=== PATIENT | female | born 1995 | race Caucasian/White ===

== ENCOUNTER 2016-04-09 19:37 | Emergency (ER) | payer OTHER ==
--- NOTE | ~2016-04-09 | CR106 ---
[facility]. [facility] A Service of [facility] & [facility] RADIOLOGY TEXT RESULTS PATIENT: PAVEL DUMONT LOCATION: SED : [birth year] UNIT #: [id number] AGE: [address]: Anuj Landon MD SEX: F ORDER DR: [id number] [place] [address] [id number] E MR#: [id number] Acc #: [id number] NAME: PAVEL DUMONT : 1995 SEX: F STUDY DATE/TIME: 04/09/2016 19:58 UNIT: SED ROOM: STUDY DESCRIPTION: CR Femur 2 Views Lt Attending Physician: Anuj Landon M.D. Ordering Physician: Anuj Landon M.D. Primary Care Physician: No Primary Care Physician MEDICAL IMAGING REPORT This report is preliminary unless electronic signature is present. EXAM Left femur series. DATE OF EXAM 04/09/2016 INDICATIONS Lower left leg pain since this morning. PROCEDURE 4 views left femur. COMPARISON None. FINDINGS No acute fracture or dislocation. IMPRESSION No acute findings. Dictated by... Carson Arreola M.D. THIS IS AN ELECTRONICALLY VERIFIED REPORT Carson Arreola M.D. at 04/11/2016 7:00 AM SP/sonya TD: 04/09/2016 23:12 JOB #: [id number] MEDICAL IMAGING REPORT
[~2016-04-09 19:37] MED LIST: ABILIFY PO; ALBUTEROL17 GM INH; CLARITIN10 M3 PO; DESYREL150 M1 PO; DOC-Q-LACE100 MG PO; FLONASE 0.05% N16 G1 INH; MULTI-VITAMIN1 EAC1 PO; PRILOSEC PO; PROAIR HFA8.5 GM INH; PROBIOTIC1 EAC3 PO; PROTONIX PO; QVAR7.3 G1 INH; QVAR7.3 GM INH; SYNTHROID PO; TRAZODONE PO; VISTARIL PO; VITAMIN D3 PO; ZOLOFT PO; ZOLOFT100 MG PO
[2016-04-23] MEDS ORDERED: OMEPRAZOLE20 M1 PO (16:01)
[2016-04-23] MEDS ORDERED: SERTRALINE HCL100 M1 PO (16:02)
[2016-04-23] MEDS ORDERED: MULTI VITAMIN1 EACH PO (16:02)
[2016-04-23] MEDS ORDERED: VITAMIN D350000 UNIT PO (16:03)
[2016-04-23] MEDS ORDERED: ACIDOPHILUS-PE1 EACH PO (16:04)
[2016-06-16] MEDS ORDERED: TOPAMAX25 MG PO (15:56)
== END 2016-04-09 20:41 | disposition home or self-care (01) ==
LOC: SED 19:37
DX: M25.552 Pain in left hip (principal); J45.909 Unspecified asthma, uncomplicated; K21.9 Gastro-esophageal reflux disease without esophagitis; F17.210 Nicotine dependence, cigarettes, uncomplicated; Z79.899 Other long term (current) drug therapy; Z91.040 Latex allergy status
CPT/HCPCS: 73552; 84703; 99283

== ENCOUNTER 2016-04-23 17:06 | Emergency (ER) | payer OTHER ==
[~2016-04-23 17:06] MED LIST changes: +ACIDOPHILUS-PE1 EACH PO; +MULTI VITAMIN1 EACH PO; +OMEPRAZOLE20 M1 PO; +SERTRALINE HCL100 M1 PO; +VITAMIN D350000 UNIT PO
[2016-04-23 17:07] LABS: BASOPHIL# 0.1 X10e3 (0-0.3); BASOPHIL% 0.8 % (0-2.5); EOSINOPHIL# 0.1 X10e3 (0-0.7); EOSINOPHIL% 1.6 % (0.0-7.0); HEMATOCRIT 47.2 % (35.0-45.0); HEMOGLOBIN 16.1 gm/dL (12.0-16.0); LYMPHOCYTE# 1.5 X10e3 (1.0-3.5); LYMPHOCYTE% 20.4 % (17.0-45.0); MEAN CELL VOLUME 83.4 FL (83-96); MEAN CORPUSCULAR HEMOGLOBIN 28.4 PG (28-34); MEAN PLATELET VOLUME 7.5 FL (6.5-11.5); MONOCYTE# 0.8 X10e3 (0-1.0); MONOCYTE% 10.7 % (3.0-12.0); NEUTROPHIL% 66.5 % (40-75); PLATELET COUNT 238 X10e3 (140-420); RED BLOOD COUNT 5.66 X10e (3.90-5.30); RED CELL DISTRIBUTION WIDTH 13.4 % (11.0-15.5); WHITE BLOOD COUNT 7.6 X10e3 (4.0-10.5)
[2016-04-23 17:08] LABS: DIFF IND NO
[2016-04-23 17:09] LABS: INFLUENZA A NEG (NEG); INFLUENZA B NEG (NEG)
[2016-04-23 17:24] LABS: BLOOD UREA NITROGEN 11 mg/dL (9-23); BUN/CREATININE RATIO 15.71; CARBON DIOXIDE 25 mmol/L (22-31); CHLORIDE 103 mmol/L (100-111); CREATININE SERUM 0.7 mg/dL (0.6-1.4); GLOM FILT RATE Estimated ABOVE60 mL/min (>60); GLUCOSE FASTING 93 mg/dL (70-110); POTASSIUM 3.3 mmol/L (3.5-5.1); SODIUM 137 mmol/L (135-145)
[2016-04-23 18:10] LABS: URINE SOURCE CLEAN CATCH
[2016-04-23 18:14] LABS: URINE APPEARANCE HAZY; URINE BILIRUBIN NEG (NEG); URINE BLOOD 2+ (NEG); URINE COLOR YELLOW; URINE GLUCOSE NEG (NORM); URINE KETONE TRACE (NEG); URINE LEUKOCYTE ESTERASE NEG (NEG); URINE NITRATE NEG (NEG); URINE PROTEIN TRACE (NEG); URINE SPECIFIC GRAVITY >=1.030 (1.003-1.035); URINE UROBILINOGEN 0.2 MG/DL (NORM)
[2016-04-23 18:18] LABS: MICRO INDICATED? YES
[2016-04-23 18:21] LABS: CULTURE INDICATED? NO; URINE BACTERIA NEG (NEG); URINE MUCUS PRESENT; URINE SQUAMOUS EPITHELIAL CELL MODERATE /[HPF]; URINE WBC NEG /[HPF] (0-5)
[2016-04-23 18:22] LABS: URINE AMORPHOUS SEDIMENT AMORP URATES
[2016-06-16] MEDS ORDERED: TOPAMAX25 MG PO (15:56)
== END 2016-04-23 18:56 | disposition home or self-care (01) ==
LOC: SED 17:06
PROVIDERS: Nurse Practitioner Family
DX: A08.4 Viral intestinal infection, unspecified (principal); F17.210 Nicotine dependence, cigarettes, uncomplicated; J45.909 Unspecified asthma, uncomplicated; Z91.040 Latex allergy status; Z79.899 Other long term (current) drug therapy
CPT/HCPCS: 36415; 80048; 81003; 84703; 85025; 87804; 96374; 99283; J2405

== ENCOUNTER 2016-05-22 20:28 | Emergency (ER) | payer OTHER ==
--- NOTE | ~2016-05-22 | CR106 ---
[facility]. [facility] A Service of [facility] & [facility] RADIOLOGY TEXT RESULTS PATIENT: PAVEL DUMONT LOCATION: SED : [birth year] UNIT #: [id number] AGE: [address]: Anuj Landon MD SEX: F ORDER DR: [id number] [place] [id number] E MR#: [id number] Acc #: [id number] NAME: PAVEL DUMONT : 1995 SEX: F STUDY DATE/TIME: 05/22/2016 21:24 UNIT: SED ROOM: STUDY DESCRIPTION: CR Femur 2 Views Lt Attending Physician: Anuj Landon M.D. Ordering Physician: Anuj Landon M.D. Primary Care Physician: Primary Care Physician No MEDICAL IMAGING REPORT This report is preliminary unless electronic signature is present. EXAM Left femur 4 views, 05/22/2016 HISTORY Left femur pain and left side pelvic pain status post fall down 5 steps this morning. FINDINGS AP and lateral views of the femur show no evidence of fracture, bone destruction, or periosteal elevation. Adjacent soft tissue structures are normal. IMPRESSION Normal femur. Dictated by... Jose Maurer M.D. THIS IS AN ELECTRONICALLY VERIFIED REPORT Jose Maurer M.D. at 05/23/2016 10:28 AM RUTHIE/rah TD: 05/23/2016 03:51 JOB #: [id number] MEDICAL IMAGING REPORT Page 1 of 1
--- NOTE | ~2016-05-22 | CR172 ---
[facility]. [facility] A Service of [facility] & [facility] RADIOLOGY TEXT RESULTS PATIENT: PAVEL DUMONT LOCATION: SED : [birth year] UNIT #: [id number] AGE: [address]: Anuj Landon MD SEX: F ORDER DR: [id number] [place] [id number] E MR#: [id number] Acc #: [id number] NAME: PAVEL DUMONT : 1995 SEX: F STUDY DATE/TIME: 05/22/2016 21:24 UNIT: SED ROOM: STUDY DESCRIPTION: CR Knee 3 Views Lt Attending Physician: Anuj Landon M.D. Ordering Physician: Anju Landon M.D. Primary Care Physician: Primary Care Physician No MEDICAL IMAGING REPORT This report is preliminary unless electronic signature is present. EXAM Left knee 3 views, 05/22/2016 HISTORY Left knee pain status post fall down 5 steps this morning. FINDINGS AP and lateral projection of the knee shows smooth articular anatomy without indication of fracture or dislocation at the major weight-bearing surface of the knee. There is no indication of radiopaque foreign body about the knee surface or joint effusion. IMPRESSION Normal knee. Dictated by... Jose Maurer M.D. THIS IS AN ELECTRONICALLY VERIFIED REPORT Jose Maurer M.D. at 05/23/2016 10:29 AM RUTHIE/rah TD: 05/23/2016 04:04 JOB #: [id number] MEDICAL IMAGING REPORT Page 1 of 1
--- NOTE | ~2016-05-22 | CR206 ---
[facility]. [facility] A Service of [facility] & [facility] RADIOLOGY TEXT RESULTS PATIENT: PAVEL DUMONT LOCATION: SED : [birth year] UNIT #: [id number] AGE: [address]: Anuj Landon MD SEX: F ORDER DR: [id number] [place] [id number] E MR#: [id number] Acc #: [id number] NAME: PAVEL DUMONT : 1995 SEX: F STUDY DATE/TIME: 05/22/2016 21:24 UNIT: SED ROOM: STUDY DESCRIPTION: CR Pelvis 1 or 2 Views Attending Physician: Anuj Landon M.D. Ordering Physician: Anuj Landon M.D. Primary Care Physician: Primary Care Physician No MEDICAL IMAGING REPORT This report is preliminary unless electronic signature is present. EXAM AP pelvis, 05/22/2016 HISTORY Pelvic pain and left hip pain status post fall down 5 steps today. FINDINGS AP, supine examination of the pelvis shows satisfactory mineralization of the bony pelvis. The sacroiliac joints are normal. There is no indication of congenital defect, fracture, or dislocation at the articular anatomy of the sacral segments or of the hip joints. No malignant, lytic, or blastic change is present. IMPRESSION Normal pelvis. Dictated by... Jose Maurer M.D. THIS IS AN ELECTRONICALLY VERIFIED REPORT Jose Maurer M.D. at 05/23/2016 10:29 AM RUTHIE/rah TD: 05/23/2016 03:52 JOB #: [id number] MEDICAL IMAGING REPORT Page 1 of 1
[2016-06-16] MEDS ORDERED: TOPAMAX25 MG PO (15:56)
== END 2016-05-22 22:01 | disposition home or self-care (01) ==
LOC: SED 20:28
DX: S83.92XA Sprain of unspecified site of left knee, initial encounter (principal); S70.02XA Contusion of left hip, initial encounter; S70.12XA Contusion of left thigh, initial encounter; J45.909 Unspecified asthma, uncomplicated; K21.9 Gastro-esophageal reflux disease without esophagitis; F41.9 Anxiety disorder, unspecified; Z91.040 Latex allergy status; Z79.899 Other long term (current) drug therapy; W10.9XXA Fall (on) (from) unspecified stairs and steps, initial encounter
CPT/HCPCS: 29505; 72170; 73552; 73562; 84703; 99284

== ENCOUNTER 2016-06-16 16:38 | Emergency (ER) | payer OTHER ==
--- NOTE | ~2016-06-16 | CR72 ---
[facility]. [facility] A Service of [facility] & [facility] RADIOLOGY TEXT RESULTS PATIENT: PAVEL DUMONT LOCATION: SED : [birth year] UNIT #: [id number] AGE: [address]: Emery Agarwal MD SEX: F ORDER DR: [id number] [address] [address] [id number] E MR#: [id number] Acc #: [id number] NAME: PAVEL DUMONT : 1995 SEX: F STUDY DATE/TIME: 06/16/2016 17:06 UNIT: SED ROOM: STUDY DESCRIPTION: CR Chest Single View Portable Attending Physician: Emery Agarwal M.D. Ordering Physician: Emery Agarwal M.D. Primary Care Physician: Primary Care Physician No MEDICAL IMAGING REPORT This report is preliminary unless electronic signature is present. EXAM Portable chest x-ray HISTORY Chest pain, vomiting, shortness of air since this a.m. FINDINGS AP lordotic view of chest presented. No comparisons. Heart and mediastinum are normal in size and contour given AP lordotic projection. The lungs are well inflated and clear. No acute pulmonary disease, pleural effusion or pneumothorax. No suspicious nodule. Bony structures unremarkable. Dictated by... Anuj Andrade M.D. THIS IS AN ELECTRONICALLY VERIFIED REPORT Anuj Andrade M.D. at 06/17/2016 2:14 PM GIOVANNIK/stephanie TD: 06/16/2016 19:25 JOB #: [id number] MEDICAL IMAGING REPORT Page 1 of 1
--- NOTE | ~2016-06-16 | EKG ---
PATIENT: PAVEL DUMONT UNIT #: [id number] Ventricular Rate: 95 BPM Atrial Rate: 95 BPM P-R Interval: 180 ms QRS Duration: 90 ms Q-T Interval: 362 ms QTC Calculation(Bezet): 454 ms P [place]: 20 degrees Calculated R [place]: 35 degrees Calculated T [place]: 17 degrees Diagnosis Line: Normal sinus rhythm Diagnosis Line: Normal ECG Diagnosis Line: No previous ECGs available Diagnosis Line: Confirmed by JOSE ANTONIO GUTIERREZ MD ([id number]) on 06/19/2016 Diagnosis Line: 3:48:27 PM INTERPRETING MD: BRENDA ELMORE
[2016-06-16 16:01] LABS: URINE SOURCE CLEAN CATCH
[2016-06-16 16:17] LABS: URINE BILIRUBIN NEG (NEG); URINE BLOOD NEG (NEG); URINE COLOR YELLOW; URINE GLUCOSE NEG (NORM); URINE KETONE NEG (NEG); URINE LEUKOCYTE ESTERASE NEG (NEG); URINE NITRATE NEG (NEG); URINE PH 6.5 (5-8); URINE PROTEIN NEG (NEG); URINE UROBILINOGEN 0.2 MG/DL (NORM)
[2016-06-16 16:18] LABS: MICRO INDICATED? NO; URINE APPEARANCE SL HAZY
[~2016-06-16 16:38] MED LIST changes: +TOPAMAX25 MG PO
[2016-06-16 16:56] LABS: BASOPHIL# 0.1 X10e3 (0-0.3); BASOPHIL% 1.1 % (0-2.5); DIFF IND NO; EOSINOPHIL# 0.2 X10e3 (0-0.7); EOSINOPHIL% 1.9 % (0.0-7.0); HEMATOCRIT 43.5 % (35.0-45.0); HEMOGLOBIN 14.6 gm/dL (12.0-16.0); LYMPHOCYTE# 3.9 X10e3 (1.0-3.5); LYMPHOCYTE% 31.1 % (17.0-45.0); MEAN CELL VOLUME 83.7 FL (83-96); MEAN CORPUSCULAR HEMOGLOBIN 28.2 PG (28-34); MEAN CORPUSCULAR HGB CONC 33.7 g/dL (30-36); MONOCYTE# 0.8 X10e3 (0-1.0); MONOCYTE% 6.3 % (3.0-12.0); NEUTROPHIL# 7.5 X10e3 (1.5-7.1); NEUTROPHIL% 59.6 % (40-75); PLATELET COUNT 295 X10e3 (140-420); RED BLOOD COUNT 5.19 X10e (3.90-5.30); RED CELL DISTRIBUTION WIDTH 13.8 % (11.0-15.5); WHITE BLOOD COUNT 12.6 X10e3 (4.0-10.5)
[2016-06-16 17:02] LABS: POC - CKMB <1.0 ng/mL (0.0-7.9)
[2016-06-16 17:03] LABS: POC - TROPONIN <0.05 ng/mL (<=0.05)
[2016-06-16 17:10] LABS: INR 0.9; PROTHROMBIN TIME (PATIENT) 10.7 SECONDS (9.5-12.4)
[2016-06-16 17:24] LABS: ALBUMIN SERUM 4.2 g/dL (3.5-5.0); BILIRUBIN, DIRECT 0.1 mg/dL (0.0-0.2); BILIRUBIN,INDIRECT 0.3 mg/dL (0.0-0.9); BILIRUBIN,TOTAL 0.4 mg/dL (0.2-2.0); BUN/CREATININE RATIO 12.5; CALCIUM SERUM 9.1 mg/dL (8.4-10.2); CREATININE SERUM 0.8 mg/dL (0.6-1.4); GLOM FILT RATE Estimated 104.7 mL/min (>60); POTASSIUM 3.6 mmol/L (3.5-5.1); PROTEIN TOTAL SERUM 7.5 g/dL (6.0-8.3)
[2016-06-16 17:26] LABS: PARTIAL THROMBOPLASTIN TIME 27.7 SECONDS (25.6-38.1)
== END 2016-06-16 17:35 | disposition home or self-care (01) ==
LOC: SED 16:38
PROVIDERS: Emergency Medicine
DX: R09.1 Pleurisy (principal); J45.909 Unspecified asthma, uncomplicated; F17.200 Nicotine dependence, unspecified, uncomplicated; Z91.040 Latex allergy status; Z79.899 Other long term (current) drug therapy
CPT/HCPCS: 36415; 71010; 80048; 80076; 81003; 82553; 84484; 85025; 85379; 85610; 85730; 93005; 99284

== ENCOUNTER 2016-06-21 14:24 | Emergency (ER) | payer OTHER ==
[2016-06-21 17:29] LABS: URINE SOURCE CLEAN CATCH
[2016-06-21 17:38] LABS: URINE APPEARANCE CLEAR; URINE BILIRUBIN NEG (NEG); URINE BLOOD TRACE-INTACT (NEG); URINE COLOR YELLOW; URINE GLUCOSE NEG (NORM); URINE KETONE NEG (NEG); URINE LEUKOCYTE ESTERASE NEG (NEG); URINE NITRATE NEG (NEG); URINE PROTEIN NEG (NEG)
[2016-06-21 17:47] LABS: MICRO INDICATED? YES
[2016-06-21 17:59] LABS: AMPHETAMINE NEG (NEG); BARBITURATES NEG (NEG); BENZODIAZEPINES NEG (NEG); COCAINE NEG (NEG); MARIJUANA NEG (NEG); OPIATES NEG (NEG); TRICYCLIC ANTIDEPRESSANTS NEG (NEG); U METHADONE NEG (NEG)
[2016-06-21 18:00] LABS: CULTURE INDICATED? YES; URINE AMORPHOUS SEDIMENT AMORP URATES; URINE BACTERIA 3+ (NEG); URINE MUCUS PRESENT; URINE SQUAMOUS EPITHELIAL CELL MANY /[HPF]; URINE WBC 0-2 /[HPF] (0-5)
== END 2016-06-21 18:07 | disposition home or self-care (01) ==
LOC: SED 14:24
PROVIDERS: Emergency Medicine
DX: F43.9 Reaction to severe stress, unspecified (principal); F41.9 Anxiety disorder, unspecified; J45.909 Unspecified asthma, uncomplicated; F32.9 Major depressive disorder, single episode, unspecified; F17.200 Nicotine dependence, unspecified, uncomplicated; Z91.040 Latex allergy status; Z79.899 Other long term (current) drug therapy
CPT/HCPCS: 80307; 81003; 84703; 87086; 99283

== ENCOUNTER 2016-07-03 11:00 | Emergency (ER) | payer OTHER | END 2016-07-03 11:42 | disposition home or self-care (01) | LOC: SED 11:00 | DX: S40.021A Contusion of right upper arm, initial encounter (principal); F17.200 Nicotine dependence, unspecified, uncomplicated; Y04.0XXA Assault by unarmed brawl or fight, initial encounter; Y92.009 Unspecified place in unspecified non-institutional (private) residence as the place of occurrence of the external cause; K21.9 Gastro-esophageal reflux disease without esophagitis; F41.9 Anxiety disorder, unspecified | CPT/HCPCS: 99283 ==

== ENCOUNTER 2016-07-20 16:14 | Emergency (ER) | payer OTHER ==
[2016-07-20 17:35] LABS: URINE SOURCE CLEAN CATCH
[2016-07-20 17:38] LABS: URINE APPEARANCE CLEAR; URINE BILIRUBIN NEG (NEG); URINE BLOOD TRACE-INTACT (NEG); URINE COLOR YELLOW; URINE GLUCOSE NEG (NORM); URINE KETONE NEG (NEG); URINE LEUKOCYTE ESTERASE NEG (NEG); URINE NITRATE NEG (NEG); URINE PROTEIN NEG (NEG); URINE UROBILINOGEN 0.2 MG/DL (NORM)
[2016-07-20 17:39] LABS: MICRO INDICATED? YES
[2016-07-20 17:46] LABS: CULTURE INDICATED? YES; URINE BACTERIA 1+ (NEG); URINE RBC 0-2 /[HPF] (0-2); URINE SQUAMOUS EPITHELIAL CELL FEW /[HPF]; URINE WBC 0-2 /[HPF] (0-5)
== END 2016-07-20 17:59 | disposition home or self-care (01) ==
LOC: SED 16:14
PROVIDERS: Emergency Medicine
DX: R10.30 Lower abdominal pain, unspecified (principal); R30.0 Dysuria; K21.9 Gastro-esophageal reflux disease without esophagitis; F41.9 Anxiety disorder, unspecified; F17.200 Nicotine dependence, unspecified, uncomplicated; Z91.040 Latex allergy status; Z79.899 Other long term (current) drug therapy
CPT/HCPCS: 81003; 84703; 87086; 99284

== ENCOUNTER 2016-07-25 19:45 | Emergency (ER) | payer OTHER | END 2016-07-25 21:38 | disposition left against medical advice (07) | LOC: SED 19:45 | DX: Z53.21 Procedure and treatment not carried out due to patient leaving prior to being seen by health care provider (principal) | CPT/HCPCS: 99281 ==

== ENCOUNTER 2016-08-30 23:35 | Emergency (ER) | payer OTHER ==
[~2016-08-30] VITALS: Ht 167.6 cm; Wt 114.8 kg
[2016-08-30] MEDS ORDERED: ABILIFY10 MG (23:48)
[2016-08-30] MEDS ORDERED: ACIDOPHILUS-PE1 EAC2 (23:48)
[2016-08-30] MEDS ORDERED: VIT D 3 (23:48)
[2016-08-30] MEDS ORDERED: FLONASE ALLERG9.9 ML (23:48)
[2016-08-30] MEDS ORDERED: DESYREL150 M1 (23:49)
[2016-08-30] MEDS ORDERED: LEVO-T25 MCG (23:49)
[2016-08-30] MEDS ORDERED: QVAR8.7 GM (23:49)
[2016-08-30] MEDS ORDERED: ALLERCLEAR10 MG PO (23:49)
[2016-08-30] MEDS ORDERED: OMEPRAZOLE10 M1 (23:49)
[2016-08-30] MEDS ORDERED: SERTRALINE HCL100 MG PO (23:49)
[2016-08-30] MEDS ORDERED: TOPIRAMATE25 M1 (23:50)
[2016-08-30] MEDS ORDERED: HYDROXYZINE HCL25 M1 (23:50)
[2016-08-30] MEDS ORDERED: DEPO-PROVE400 MG/1 M (23:51)
== END 2016-08-31 01:46 | disposition home or self-care (01) ==
LOC: SED 23:35
DX: S83.92XA Sprain of unspecified site of left knee, initial encounter (principal); F79 Unspecified intellectual disabilities; F17.200 Nicotine dependence, unspecified, uncomplicated; Z79.899 Other long term (current) drug therapy; Z91.040 Latex allergy status; X58.XXXA Exposure to other specified factors, initial encounter; Y92.009 Unspecified place in unspecified non-institutional (private) residence as the place of occurrence of the external cause
CPT/HCPCS: 29505; 99283